=== PATIENT | female | born 1955 | race Caucasian/White ===

== ENCOUNTER → 2017-03-21 | Outpatient (CLI) | payer MEDICARE ==
--- NOTE | 2017-03-21 10:03 | RADIOLOGY REPORT (SQ) ---
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 TECHNIQUE: Dynamic and static grayscale images acquired of the abdomen and recorded on PACS. Additio nal selected color Doppler and spectral images recorded. LIMITATIONS: None. FINDINGS: PANCREAS: No masses. No peripancreatic edema or fluid collections. LIVER: Echotexture is coarse with increased echogenicity consistent with fatty infiltration. Stable hepatic cysts. No solid masses. LIVER VASCULATURE: Normal directional flow of the main portal vein and hepatic veins. GALLBLADDER: Borderline gallbladder wall thickening. Small fixed nonshadowing echogenic nodule on th e mucosa measuring 2.5 mm. No calculi. No pericholecystic fluid. ULTRASOUND-DETECTED LORA'S SIGN: Negative. INTRAHEPATIC DUCTS AND COMMON DUCT: CBD and intrahepatic ducts normal caliber. No filling defects. INFERIOR VENA CAVA: Normal flow. AORTA: No aneurysm. RIGHT KIDNEY: Normal size. Normal echogenicity. No solid or suspicious masses. No hydronephrosis. No calcifications. PERITONEAL AND RIGHT PLEURAL SPACE: No ascites or effusions. OTHER: No other significant finding. IMPRESSION: 1. STABLE APPEARANCE OF THE LIVER. FATTY INFILTRATION WITH STABLE CYSTS. 2. BORDERLINE GALLBLADDER WALL THICKENING. SMALL, 2.5 MM, MUCOSAL NODULE CONSISTENT WITH A MUCOSAL P OLYP. TECHNICAL DOCUMENTATION: JOB ID: [id number] [employer]- All Rights Reserved
== END ==
LOC: RAD 08:39
PROVIDERS: ATTEND Internal Medicine Gastroenterology
DX: B18.2 Chronic viral hepatitis C (principal); K74.69 Other cirrhosis of liver
CPT/HCPCS: 76705

== ENCOUNTER → 2017-07-06 | Outpatient (CLI) | payer MEDICARE ==
--- NOTE | 2017-07-06 09:12 | RADIOLOGY REPORT (SQ) ---
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 TECHNIQUE: Post IV contrasted scanning from skull base through lung apices with review of bone, soft tissue and lung windows. Reconstructed coronal and sagittal MPR images reviewed. All images stored on PACS. All CT scanners at this facility use dose modulation, iterative reconstruction, and/or weight based d osing when appropriate to reduce radiation dose to as low as reasonably achievable (ALARA). [facility]: Dose Right [facility]: CareDose [facility]: Dose Right [facility]: Teradose 4D [facility]: [employer] CONTRAST TYPE AND DOSE: contrast/concentration: Isovue 370.00 mg/ml; Total Contrast Delivered: 75.0 ml; Total Saline Delivered: 55.0 ml RENAL FUNCTION: Creatinine 0.7 RADIATION DOSE: 11.7 mGy . LIMITATIONS: None. FINDINGS: SKULL BASE: Intact. Inferior brain parenchyma, visualized [place] unremarkable MAJOR SALIVARY GLANDS: No solid or cystic masses. No inflammatory changes. Symmetric parotid and wood bmandibular glands. LYMPHADENOPATHY: No adenopathy. MUCOSAL MASSES OR ASYMMETRY: No mucosal masses or asymmetry. LARYNX/CORDS: No abnormal findings. VASCULAR STRUCTURES: Patient has significant atherosclerotic disease. There is heavy calcification w ith greater than 70% stenosis proximal left subclavian artery. Left vertebral artery is dominant. T his puts the patient at risk for subclavian steal. There is very heavy atherosclerotic carotid bifur cation calcification with greater than 70% stenosis suspected at the right carotid bifurcation. Maik elation with carotid Doppler recommended, to include systolic blood pressure measurements in both upp er extremities LUNG APICES: Clear. Obstructive lung disease is present. BONES: Intact. THYROID: Normal size. 14 x 11 mm nodule right lobe thyroid. Thyroid ultrasound recommended for foll owup PARANASAL SINUSES: Clear. OTHER: Patient is post cervical fusion from C5 through C7, with an anterior plate and anchoring screw s. IMPRESSION: No salivary gland masses No cervical adenopathy Atherosclerotic change with flow significant stenosis suspected at the right carotid bifurcation and left proximal subclavian artery. Follow-up carotid Doppler is recommended to include differential bl ood pressures of the right and left arms, and vertebral artery analysis to evaluate for subclavian st eal TECHNICAL DOCUMENTATION: JOB ID: [id number] Quality ID # [id number]: Final reports with documentation of one or more dose reduction techniques (e.g., Au tomated exposure control, adjustment of the mA and/or kV according to patient size, use of iterative reconstruction technique) 2010 [employer]- All Rights Reserved
== END ==
LOC: RAD 07:42
PROVIDERS: ATTEND Internal Medicine Gastroenterology
DX: K11.9 Disease of salivary gland, unspecified (principal); Z85.9 Personal history of malignant neoplasm, unspecified; J44.9 Chronic obstructive pulmonary disease, unspecified
CPT/HCPCS: 70491; 82565

== ENCOUNTER → 2017-07-11 | Outpatient (CLI) | payer MEDICARE, MEDICAID ==
--- NOTE | 2017-07-11 12:55 | RADIOLOGY REPORT (SQ) ---
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 02 OCCLUSION AND STENOSIS OF LEFT VERTEBRAL ARTERY COMPARISON: None. TECHNIQUE: Grayscale ultrasound, Doppler velocity and spectra, and color Doppler images acquired of the extra-cranial carotid and vertebral arteries. Images stored on PACS. LIMITATIONS: None. FINDINGS: RIGHT CAROTID CCA Velocities: Within normal limits. ICA Velocities Peak systolic 134cm/s. End diastolic 46cm/s. Proximal ICA/CCA peak systolic ratio 3.9. Heterogeneous plaque is present. LEFT CAROTID CCA Velocities: Within normal limits. ICA Velocities Peak systolic 109cm/s. End diastolic 34cm/s. Proximal ICA/CCA peak systolic ratio 1.7. There is some heterogeneous plaque. VERTEBRAL ARTERIES: Antegrade flow. Normal waveforms. SUBCLAVIAN ARTERIES: No finding. OTHER: No other significant finding. IMPRESSION: Atherosclerotic changes with no hemodynamically significant stenosis. Stenosis in the r ight carotid system is on the order of 50- 69%. Stenosis on the left is less than 50%. COMMENT: Quality ID #195: Velocity criteria are extrapolated from the diameter data as defined by t he Society of Radiologists in Ultrasound Consensus Conference. Radiology 2003: 229; 340-346. TECHNICAL DOCUMENTATION: JOB ID: [id number] [employer]- All Rights Reserved
== END ==
LOC: SP 09:41
PROVIDERS: ATTEND Internal Medicine Gastroenterology
DX: I65.21 Occlusion and stenosis of right carotid artery (principal); I65.02 Occlusion and stenosis of left vertebral artery
CPT/HCPCS: 93880

== ENCOUNTER → 2018-04-27 | Outpatient (CLI) | payer MEDICARE, MEDICAID ==
--- NOTE | 2018-04-27 09:46 | WOMENS IMAGING REPORT ---
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 Additio [facility] selected color Doppler and spectral images recorded. LIMITATIONS: None. FINDINGS: PANCREAS: Midline pancreas unremarkable LIVER: Normal size. Stable mild increased echogenicity from diffuse hepatocellular disease. Stable 2.5 cm cyst right lobe liver. LIVER VASCULATURE: Normal directional flow of the main portal vein and hepatic veins. GALLBLADDER: Tiny stones in the gallbladder fundus. No gallbladder wall thickening or pericholecysti c fluid. ULTRASOUND-DETECTED LORA'S SIGN: Negative. INTRAHEPATIC DUCTS AND COMMON DUCT: CBD and intrahepatic ducts normal caliber. No filling defects. D istal common duct not well seen due to duodenum gas INFERIOR VENA CAVA: Normal flow. AORTA: No aneurysm. Heavy atherosclerotic calcification RIGHT KIDNEY: Normal size. Normal echogenicity. No solid or suspicious masses. No hydronephrosis. No calcifications. PERITONEAL AND RIGHT PLEURAL SPACE: No ascites or effusions. OTHER: No other significant findings. IMPRESSION: Tiny stones in the gallbladder fundus Stable mild increased echogenicity of the liver TECHNICAL DOCUMENTATION: JOB ID: [id number] [employer]- All Rights Reserved Reading location - IP/workstation name: [email or web address]
== END ==
LOC: WI 07:40
PROVIDERS: ATTEND Internal Medicine Gastroenterology
DX: B18.2 Chronic viral hepatitis C (principal); K74.69 Other cirrhosis of liver
CPT/HCPCS: 76705

== ENCOUNTER → 2019-02-20 | Outpatient (CLI) | payer MEDICAID, MEDICARE ==
--- NOTE | 2019-02-20 12:13 | RADIOLOGY REPORT (SQ) ---
EXAM DESCRIPTION: CT CHEST WITHOUT COMPLETED DATE/TIME: 02/20/2019 10:32 am REASON FOR STUDY: J43.9 EMPHYSEMA, UNSPECIFIED J43.9 EMPHYSEMA, UNSPECIFIED R91.1 SOLITARY PULMONA RY NODULE R06.09 OTHER FORMS OF DYSPNEA COMPARISON: None. TECHNIQUE: CT scan performed of the chest without intravenous contrast. Images reviewed with lung, soft tissue and bone windows. Reconstructed coronal and sagittal MPR images reviewed. All images st ored on PACS. All CT scanners at this facility use dose modulation, iterative reconstruction, and/or weight based d osing when appropriate to reduce radiation dose to as low as reasonably achievable (ALARA). [facility]: Dose Right [facility]: CareDose [facility]: Dose Right [facility]: Teradose 4D [facility]: [employer] RADIATION DOSE: CT Rad equipment meets quality standard of care and radiation dose reduction techniq ues were employed. CTDIvol: 2.8 mGy. DLP: 112 mGy-cm. mGy. LIMITATIONS: No technical limitations. FINDINGS: LUNGS AND PLEURA: Extensive centrilobular emphysema is present. There is no infiltrate, m ass, or effusion. HILAR AND MEDIASTINAL STRUCTURES: No identified masses or abnormal nodes. No obvious aneurysm. HEART AND VASCULAR STRUCTURES: No aneurysm. No pericardial effusion. UPPER ABDOMEN: Hepatic cyst. THYROID AND OTHER SOFT TISSUES: No masses. No adenopathy. BONES: No significant finding. HARDWARE: None in the chest. OTHER: No other significant findings. IMPRESSION: Pulmonary emphysema. TECHNICAL DOCUMENTATION: JOB ID: [id number] Quality ID # [id number]: Final reports with documentation of one or more dose reduction techniques (e.g., Au tomated exposure control, adjustment of the mA and/or kV according to patient size, use of iterative reconstruction technique) 2010 [employer]- All Rights Reserved Reading location - IP/workstation name: [email or web address]
== END ==
LOC: RAD 10:13
PROVIDERS: ATTEND Internal Medicine Critical Care Medicine
DX: J43.9 Emphysema, unspecified (principal); R91.1 Solitary pulmonary nodule; R06.09 Other forms of dyspnea
CPT/HCPCS: 71250

== ENCOUNTER → 2020-04-03 | Outpatient (CLI) | payer MEDICARE ==
--- NOTE | 2020-04-03 09:50 | WOMENS IMAGING REPORT ---
EXAM DESCRIPTION: U/S ABDOMEN LIMITED IMAGES COMPLETED DATE/TIME: 04/03/2020 9:37 am REASON FOR STUDY: K74.69 OTHER CIRRHOSIS OF LIVER K74.69 OTHER CIRRHOSIS OF LIVER COMPARISON: 04/27/2018 TECHNIQUE: Dynamic and static grayscale images acquired of the abdomen and recorded on PACS. Additio nal selected color Doppler and spectral images recorded. LIMITATIONS: None. FINDINGS: PANCREAS: Visualized portions the pancreas are normal in appearance. LIVER: Septated cyst measured 2.1 x 2.2 x 1.7 cm. This is in the right lobe. Mild stable increased echogenicity. LIVER VASCULATURE: Normal directional flow of the main portal vein and hepatic veins. GALLBLADDER: Gallstones. No wall thickening or pericholecystic edema. ULTRASOUND-DETECTED LORA'S SIGN: Negative. INTRAHEPATIC DUCTS AND COMMON DUCT: CBD and intrahepatic ducts normal caliber. No filling defects. INFERIOR VENA CAVA: Normal flow. AORTA: Atherosclerotic change. No aneurysmal dilatation. RIGHT KIDNEY: Normal size. Normal echogenicity. No solid or suspicious masses. No hydronephrosis. No calcifications. PERITONEAL AND RIGHT PLEURAL SPACE: No ascites or effusions. OTHER: No other significant findings. IMPRESSION: Gallstones. Mild increased echogenicity throughout the liver. Stable small hepatic cys t. TECHNICAL DOCUMENTATION: JOB ID: [id number] 2010 [employer]- All Rights Reserved Reading location - IP/workstation name: [email or web address]
== END ==
LOC: WI 09:15
PROVIDERS: ATTEND Internal Medicine Gastroenterology
DX: K74.69 Other cirrhosis of liver (principal); K80.80 Other cholelithiasis without obstruction
CPT/HCPCS: 76705